=== PATIENT | male | born 1975 | race Caucasian/White ===

== ENCOUNTER 2020-04-29 23:04 | Emergency (ER) | payer OTHER ==
[~2020-04-29] VITALS: Ht 190.5 cm; Wt 98.4 kg
[~2020-04-29 23:04] MED LIST: ATIVAN1 MG PO; NAPROSYN500 MG PO; NORCO 5-325 TA1 EACH PO
[2020-04-29] MEDS ORDERED: GLIPIZIDE ER5 MG PO (23:14)
--- OUTSIDE RECORDS SUMMARY | 2020-04-30 00:50 | XMS ---
PreManage Notification: AMERICA RICHMOND Security Oncology Rn Events No recent Security Events currently on file CRITERIA MET - [facility] - 2 Visits in 30 Days CARE PROVIDERS There are no care providers on record at this time. Flores has no Care Guidelines for this patient. Ernestina VISIT COUNT (12 MO.) 1 [facility] [address] [facility] TOTAL 2 NOTE: Visits indicate total known visits. ED/C VISIT TRACKING (12 MO.) 04/30/2020 00:41 [facility] [place] [facility] TYPE: Emergency DIAGNOSES: - Stemi 04/29/2020 23:05 [facility] [place] TYPE: Emergency COMPLAINT: - CHEST PAIN INPATIENT VISIT TRACKING (12 MO.) No inpatient visits to display in this time frame [email or web address]
--- NOTE | 2020-05-02 13:28 | EKG ---
[facility] [address] [place], [place] [address] Signed Normal sinus rhythm ST elevation in the inferior leads with reciprocal ST depression in aVL suggestive of Inferior Wall Myocardial Infarcation Abnormal ECG No previous ECGs available Confirmed by GLALO YEH MD ([id number]) on 05/02/2020 1:28:41 PM Electronically Signed By: GALLO YEH MD 05/02/20 1328 PATIENT NAME: AMERICA RICHMOND Electrocardiogram DATE OF : 73 PHYSICIAN: GALLO YEH MD REPORT #: [id number] REPORT IS CONFIDENTIAL AND NOT TO BE RELEASED WITHOUT AUTHORIZATION
--- NOTE | 2020-05-02 13:29 | EKG ---
[facility] [address] [facility] [place] [address] Signed Sinus bradycardia with 1st degree AV block ST Elevation noted the inferior leads. Borderline ECG When compared with ECG of 29-APR-2020 23:08, (Unconfirmed) No significant change was found Confirmed by GALLO YEH MD ([id number]) on 05/02/2020 1:29:13 PM Electronically Signed By: GALLO YEH MD 05/02/20 1329 PATIENT NAME: AMERICA RICHMOND Electrocardiogram DATE OF : 73 PHYSICIAN: GALLO YEH MD REPORT #: [id number] REPORT IS CONFIDENTIAL AND NOT TO BE RELEASED WITHOUT AUTHORIZATION
== END 2020-04-30 00:06 | disposition short-term general hospital (02) ==
LOC: ED 23:04
DX: I21.19 ST elevation (STEMI) myocardial infarction involving other coronary artery of inferior wall (principal); Z20.822 Contact with and (suspected) exposure to COVID-19; E78.5 Hyperlipidemia, unspecified; R73.03 Prediabetes; F17.200 Nicotine dependence, unspecified, uncomplicated; Z79.899 Other long term (current) drug therapy
CPT/HCPCS: 71045; 80053; 83735; 84484; 85025; 93005; 93010; 96374; 96375; 99285-25; C9803; J1644; J2270; J2405; J7030; U0003

== ENCOUNTER 2021-01-19 01:37 | Emergency (ER) | payer OTHER ==
[~2021-01-19] VITALS: Ht 190.5 cm; Wt 100.0 kg
[~2021-01-19 01:37] MED LIST changes: +GLIPIZIDE ER5 MG PO
[2021-01-19] MEDS ORDERED: ZOFRAN4 MG PO (04:50)
[2021-01-19] MEDS ORDERED: HYDROCODON-ACE1 EA10 PO (04:50)
--- NOTE | 2021-01-19 20:23 | EKG ---
[facility] [address] [facility] [place], [place] [address] Signed Normal sinus rhythm Normal ECG When compared with ECG of 29-APR-2020 23:21, ST no longer elevated in Inferior leads Confirmed by MARIAN ZABALA DO ([id number]) on 01/19/2021 8:22:48 PM Electronically Signed By: MARIAN ZABALA DO 01/19/212022 PATIENT NAME: AMERICA RICHMOND Electrocardiogram DATE OF : 73 PHYSICIAN: MARIAN ZABALA DO REPORT #: [id number] REPORT IS CONFIDENTIAL AND NOT TO BE RELEASED WITHOUT AUTHORIZATION
== END 2021-01-19 05:00 | disposition home or self-care (01) ==
LOC: ED 01:37
DX: N13.2 Hydronephrosis with renal and ureteral calculous obstruction (principal); R74.8 Abnormal levels of other serum enzymes; Z20.822 Contact with and (suspected) exposure to COVID-19; F17.200 Nicotine dependence, unspecified, uncomplicated; E78.5 Hyperlipidemia, unspecified; Z79.899 Other long term (current) drug therapy
CPT/HCPCS: 74177; 80053; 81001; 82150; 83690; 85025; 93005; 93010; 99284-25; A9270; C9803; J1170; J1885; J2405; J7030; U0003

== ENCOUNTER 2024-12-24 06:00 | Day surgery (SDC) | payer OTHER ==
[~2024-12-24] VITALS: Ht 190.5 cm; Wt 86.0 kg
[~2024-12-24 06:00] MED LIST changes: +ATORVASTATIN CA40 MG PO; +CALCIUM WITH M1 EACH PO; +FARXIGA10 MG PO; +HYDROCODON-ACE1 EA10 PO; +LACTATED RINGER'S 1,000 ML IV SCH; +OMEGA 3 1,0001 EACH PO; +OZEMPIC1 MG/0.71 SUB-Q; +POTASSIUM99 M3 PO; +VAZALORE81 MG PO; +VITAMIN D325 MC2 PO; +ZOFRAN4 MG PO
[2024-12-24 06:08] VITALS: BP 131/84
[2024-12-24] MEDS ORDERED: IBLOOD GLUCOSE TEST STRIP 1 EA TEST VI PRN (07:00)
[2024-12-24] MEDS ORDERED: LIDOCAINE HCL 1% 5 ML SDV INJ ONE (07:00)
[2024-12-24] MEDS ORDERED: LIDOCAINE HCL 2% 5 ML SDV ONE (07:26)
[2024-12-24] MEDS ORDERED: fentaNYL citrate 100 MCG/2 ML VIAL ONE (07:26)
--- NOTE | 2024-12-24 08:23 | NUR ---
12/24/24 0823 Rupal Blackwood 0814 PT TO PACU SLEEPING BUT AROUSABLE OPENS EYES TO VERBAL STIMULI, PT MAINTAINING SATS ABOVE 95% ON ROOM AIR
[2024-12-24 08:40] VITALS: BP 120/95
--- NOTE | 2024-12-28 10:49 | PATH ---
[facility] [address] [place], [place] [address] Signed SPECIMEN(S): A COLON POLYP, 25 CM SPECIMEN(S): B COLON POLYP, 20 CM SPECIMEN SOURCE: A. COLON POLYP, 25 CM B. COLON POLYP, 20 CM CLINICAL HISTORY: History of polyps, screening FINAL PATHOLOGIC DIAGNOSIS: A. Colon polyp, 25 cm: - Tubular adenoma, negative for high-grade dysplasia. B. Colon polyp, 20 cm - Hyperplastic polyp, negative for dysplasia. NA MICROSCOPIC EXAMINATION: Histologic sections of all submitted blocks are examined by light microscopy. These findings, together with the gross examination, support the pathologic diagnosis. GROSS DESCRIPTION: A. The specimen, labeled and designated "Riley, colon polyp, 25 cm," is received in formalin and consists of three sol soft tissue fragments, ranging from 0.2-0.4 cm. Entirely submitted in (A1). B. The specimen, labeled and designated "Riley, colon polyp, 20 cm," is received in formalin and consists of four sol soft tissue fragments, ranging from 0.3-0.4 cm. Entirely submitted in (B1). VB (under the direct supervision of a pathologist) The Gross Description was prepared using a voice recognition system. The report was reviewed for accuracy; however, sound-alike word errors, addition and/or deletions may occur. If there is any question about this report, please contact Client Services. ADDITIONAL NOTES: Immunohistochemical and/or in situ hybridization studies if performed in this case included appropriate positive controls that reacted as expected. This test was developed and its performance characteristics determined by [facility]. It has not been cleared or approved by the U.S. Food and Drug Administration. The FDA has determined that PATIENT NAME: AMERICA RICHMOND PATHOLOGY DATE OF : 73 REPORT #: [id number] PHYSICIAN: PASCUAL HILTON PCP: ANA HERNANDEZ PAC REPORT IS CONFIDENTIAL AND NOT TO BE RELEASED WITHOUT AUTHORIZATION [facility] [address] [place], [place] [address] Signed such clearance or approval is not necessary. This test is used for clinical purposes. It should not be regarded as investigational or for research. [facility] is certified under the Clinical Laboratory Improvement Amendments of 1988 (CLIA) as qualified to perform high complexity clinical laboratory testing. PERFORMING LABORATORY: Technical component was performed by [facility], [address] [place] [address] (CLIA# [id number]). Professional interpretation was performed by [facility], [address] [place] [address] (CLIA#: [id number]). Diagnostician: Osei Melendrez MD Pathologist Electronically Signed 12/28/2024 Copies: ~ PATIENT NAME: AMERICA RICHMOND PATHOLOGY DATE OF : 73 REPORT #: [id number] PHYSICIAN: PASCUAL PATHOLOGY PCP: ANA HERNANDEZ PAC REPORT IS CONFIDENTIAL AND NOT TO BE RELEASED WITHOUT AUTHORIZATION
== END 2024-12-24 08:47 | disposition home or self-care (01) ==
LOC: DS 06:00
PROVIDERS: ATTEND Surgery
PROC: 0DBP8ZX Excision of Rectum, Via Natural or Artificial Opening Endoscopic, Diagnostic (ICD-10-PCS; 2024-12-24)
PROC: 0DBN8ZX Excision of Sigmoid Colon, Via Natural or Artificial Opening Endoscopic, Diagnostic (ICD-10-PCS; principal; 2024-12-24 07:30)
DX: Z12.11 Encounter for screening for malignant neoplasm of colon (principal); D12.5 Benign neoplasm of sigmoid colon; K62.1 Rectal polyp; K64.8 Other hemorrhoids; Z86.0100 Personal history of colon polyps, unspecified; I10 Essential (primary) hypertension; E11.40 Type 2 diabetes mellitus with diabetic neuropathy, unspecified; I25.10 Atherosclerotic heart disease of native coronary artery without angina pectoris; Z88.8 Allergy status to other drugs, medicaments and biological substances; Z79.899 Other long term (current) drug therapy
CPT/HCPCS: 00811; J2003; J2704; J3010; J7121

== ENCOUNTER 2024-12-24 15:25 | Emergency (ER) | payer OTHER ==
[~2024-12-24] VITALS: Ht 190.5 cm; Wt 89.5 kg
[~2024-12-24 15:25] MED LIST changes: -LACTATED RINGER'S 1,000 ML IV SCH
[2024-12-24 15:41] LABS: BASOPHILS 0.3 % (0.2-1.2); EOSINOPHILS 0.8 % (0.8-7.0); LYMPHOCYTES 18.6 % (21.8-53.1); MCH 30.7 PG (25.7-32.2); MCHC 34.0 g/dL (32.3-36.5); MCV 90.4 fL (79.0-92.2); MONOCYTES 6.2 % (5.3-12.2); NEUTROPHILS 73.7 % (34.0-67.9); RBC 5.50 M/uL (4.63-6.08)
[2024-12-24 15:50] LABS: INR 0.93 (0.80-1.30); PROTIME 11.8 Sec (11.2-14.2)
[2024-12-24 16:02] LABS: ALT (SGPT) 34.0 U/L (14-59); AST (SGOT) 15.0 U/L (15-37); GLOMERULAR FILTRATION RATE,EST 100.0 mL/min (>60); PROTEIN, TOTAL 7.0 g/dL (6.4-8.2); UREA NITROGEN 16.0 mg/dL (7-18)
[2024-12-24 19:13] VITALS: BP 120/88
--- NOTE | 2024-12-25 11:43 | EKG ---
[facility] [address] [facility] [place], [place] [address] Signed Normal sinus rhythm Nonspecific intraventricular conduction delay Borderline ECG When compared with ECG of 24-DEC-2024 15:33, (Unconfirmed) No significant change was found Confirmed by MERLE DICK MD ([id number]) on 12/25/2024 11:43:39 AM Electronically Signed By: MERLE DICK 12/25/24 1143 PATIENT NAME: AMERICA RICHMOND Electrocardiogram DATE OF : 73 PHYSICIAN: MERLE DICK REPORT #: [id number] REPORT IS CONFIDENTIAL AND NOT TO BE RELEASED WITHOUT AUTHORIZATION
--- NOTE | 2024-12-25 11:44 | EKG ---
[facility] [address] [facility] [place], [place] [address] Signed Normal sinus rhythm Cannot rule out Anterior infarct , age undetermined Abnormal ECG When compared with ECG of 19-JAN-2021 02:24, No significant change was found Confirmed by MERLE DICK MD ([id number]) on 12/25/2024 11:44:10 AM Electronically Signed By: MERLE DICK 12/25/24 1144 PATIENT NAME: AMERICA RICHMOND Electrocardiogram DATE OF : 73 PHYSICIAN: MERLE DICK REPORT #: [id number] REPORT IS CONFIDENTIAL AND NOT TO BE RELEASED WITHOUT AUTHORIZATION
== END 2024-12-24 19:14 | disposition home or self-care (01) ==
LOC: ED 15:25
PROVIDERS: Emergency Medicine
DX: R07.89 Other chest pain (principal); K80.20 Calculus of gallbladder without cholecystitis without obstruction; N20.0 Calculus of kidney; I25.10 Atherosclerotic heart disease of native coronary artery without angina pectoris; E78.5 Hyperlipidemia, unspecified; I25.2 Old myocardial infarction; F17.210 Nicotine dependence, cigarettes, uncomplicated; Z98.890 Other specified postprocedural states; Z88.8 Allergy status to other drugs, medicaments and biological substances; Z79.85 Long-term (current) use of injectable non-insulin antidiabetic drugs; Z79.82 Long term (current) use of aspirin; Z79.899 Other long term (current) drug therapy
CPT/HCPCS: 36415; 71045; 74177; 76705; 80053; 83880; 84484; 85025; 85610; 93005; 93010; 99285-25; Q9967

== ENCOUNTER 2025-02-25 11:53 | Emergency (ER) | payer OTHER ==
[~2025-02-25] VITALS: Ht 190.5 cm; Wt 88.0 kg
[2025-02-25 12:13] LABS: BASOPHILS 0.6 % (0.2-1.2); EOSINOPHILS 0.8 % (0.8-7.0); LYMPHOCYTES 22.2 % (21.8-53.1); MCH 30.5 PG (25.7-32.2); MCHC 33.3 g/dL (32.3-36.5); MCV 91.6 fL (79.0-92.2); MONOCYTES 6.7 % (5.3-12.2); NEUTROPHILS 69.4 % (34.0-67.9); RBC 5.38 M/uL (4.63-6.08)
[2025-02-25 12:40] LABS: ALT (SGPT) 32.0 U/L (14-59); AST (SGOT) 14.0 U/L (15-37); GLOMERULAR FILTRATION RATE,EST 81.0 mL/min (>60); PROTEIN, TOTAL 7.3 g/dL (6.4-8.2); UREA NITROGEN 20.0 mg/dL (7-18)
[2025-02-25 14:10] VITALS: BP 125/92
--- NOTE | 2025-02-26 22:31 | EKG ---
[facility] [address] [facility] [place] [address] Signed Normal sinus rhythm Possible Left atrial enlargement Borderline ECG When compared with ECG of 24-DEC-2024 17:00, T wave amplitude has increased in Anterior leads Confirmed by Aj Suresh MD () on 02/26/2025 10:31:47 PM Electronically Signed By: AJ SURESH MD 02/26/252230 PATIENT NAME: AMERICA RICHMOND Electrocardiogram DATE OF : 73 PHYSICIAN: AJ SURESH MD REPORT #: [id number] REPORT IS CONFIDENTIAL AND NOT TO BE RELEASED WITHOUT AUTHORIZATION
== END 2025-02-25 14:08 | disposition home or self-care (01) ==
LOC: ED 11:53
PROVIDERS: Emergency Medicine
DX: R07.9 Chest pain, unspecified (principal); E78.5 Hyperlipidemia, unspecified; F17.200 Nicotine dependence, unspecified, uncomplicated; Z79.84 Long term (current) use of oral hypoglycemic drugs; Z79.899 Other long term (current) drug therapy; Z79.82 Long term (current) use of aspirin
CPT/HCPCS: 36415; 71045; 80053; 83735; 84484; 85025; 93005; 93010; 99285-25